=== PATIENT | male | born 1995 | race Caucasian/White ===

== ENCOUNTER 2023-03-31 22:49 | Emergency (ER) | payer OTHER ==
[~2023-03-31] VITALS: Ht 180.3 cm; Wt 106.0 kg
[2023-03-31 22:58] VITALS: BP 165/109
[2023-03-31 23:09] VITALS: BP 115/80
[2023-03-31] MEDS ORDERED: BIKTARVY 50-2001 TAB PO (23:45)
[2023-03-31 23:58] VITALS: BP 115/80
== END 2023-04-01 00:10 | disposition home or self-care (01) | DRG 951 ==
LOC: ED 22:49
DX: Z77.21 Contact with and (suspected) exposure to potentially hazardous body fluids (principal)